=== PATIENT | male | born 1995 | race Caucasian/White ===

== ENCOUNTER 2020-08-02 23:53 | Emergency (ER) | payer OTHER ==
[2020-08-02 23:59] VITALS: BP 146/80; PULSE 98; RESP 18; TEMP 98
--- NOTE | 2020-08-03 00:35 | ED ---
Skin/Abscess/FB HPI - General Chief complaint: Skin/Abscess/Foreign Body Stated complaint: swallowed razor Time Seen by Provider: 08/02/20 23:59 Source: patient, police Mode of arrival: ambulatory Limitations: no limitations - History of Present Illness Initial comments: 25 year-old male patient presents to the emergency department for evaluation after swallowing a razor blade. Patient is currently incarcerated. States that he swallowed the blade around 2100 in an attempt to kill himself. Patient states he is having some burning in his abdomen and hiccups since swallowing it. Denies vomiting. Has not had a bowel movement. Denies any other injuries or concerns. Patient denies any recent rash, fever, chills, cough, shortness of breath, chest pain, back pain, numbness, tingling, dizziness, weakness, hematuria, dysuria, urinary urgency, urinary frequency, headache, visual changes, or any other complaints. - Related Data Allergies Allergy/AdvReac Type Severity Reaction Status Date / Time No Known Allergies Allergy Verified 08/02/20 23:58 Review of Systems ROS Statement: Those systems with pertinent positive or pertinent negative responses have been documented in the HPI. ROS Other: All systems not noted in ROS Statement are negative. Past Medical History Past Medical History: No Reported History History of Any Multi-Drug Resistant Organisms: None Reported Past Surgical History: Appendectomy Past Psychological History: Depression, PTSD Smoking Status: Never smoker Past Alcohol Use History: None Reported Past Drug Use History: None Reported General Exam Limitations: no limitations General appearance: alert, in no apparent distress, other (this is a well- developed, well-nourished adult male patient in no acute distress.) Eye exam: Present: normal appearance, PERRL, EOMI. Absent: scleral icterus, conjunctival injection, periorbital swelling ENT exam: Present: normal exam, normal oropharynx, mucous membranes moist Respiratory exam: Present: normal lung sounds bilaterally. Absent: respiratory distress, wheezes, rales, rhonchi, stridor Cardiovascular Exam: Present: regular rate, normal rhythm, normal heart sounds. Absent: systolic murmur, diastolic murmur, rubs, gallop, clicks GI/Abdominal exam: Present: soft, normal bowel sounds. Absent: distended, tenderness, guarding, rebound, rigid Neurological exam: Present: alert, oriented X3, CN II-XII intact Psychiatric exam: Present: normal affect, normal mood Skin exam: Present: warm, dry, intact, normal color. Absent: rash Course Vital Signs 08/02/20 23:56 Temperature 98 F Pulse Rate 98 Respiratory 18 Rate Blood Pressure 146/80 O2 Sat by Pulse 99 Oximetry Medical Decision Making - Medical Decision Making 25-year-old male patient presents to the emergency department today for evaluation after swallowing a razor blade in attempt to kill himself. Patient is currently incarcerated. Reports some mild epigastric burning, no vomiting. Tu x-rays were obtained and did show a razor blade type foreign body noted over the left upper quadrant region. Case was discussed with on-call manager contract Dr. Gutierrez who is not going to do intervention at this time. Most likely the foreign body will pass without incident. Patient is informed of signs and symptoms to watch out for. He does seem regretful of his actions and states it was "stupid". He is instructed to watch his stool, repeat xray in 3-4 days if the object is not identified in the stool. Sheriff rausch here with patient informs me that patient will undergo mental health evaluation and monitoring in senior living. Patient is agreeable to discharge. Return parameters were discussed in detail. He verbalizes understanding. Case discussed with my attending Dr. Madrigal. - Radiology Data Radiology results: image reviewed Metallic foreign body noted over the left upper quadrant. Disposition Clinical Impression: Swallowed foreign body Disposition: HOME SELF-CARE Condition: Good Instructions (If sedation given, give patient instructions): Foreign Body Ingestion (ED) Additional Instructions: Follow up with the primary care physician as soon as possible. If you have increased abdominal pain, vomiting blood, large amounts of bloody stool return to the hospital immediately. Is patient prescribed a controlled substance at d/c from ED?: No Referrals: None,Stated [Primary Care Provider] - 1-2 days Time of Disposition: 00:35
--- NOTE | 2020-08-03 01:08 | XR ---
ADDENDUM - Added by Axel Sanchez MD on 08/03/2020 1:11 AM (-05:00) Corrective addendum: There is an abnormal rectangular foreign body in the left upper quadrant measuring approximate 9 x 23 mm. This could be in the stomach and the small bowel or colon. EXAM: XR Abdomen, 2 Views CLINICAL HISTORY: Reason: swallowed razor blade TECHNIQUE: Frontal view of the abdomen/pelvis with upright view of the abdomen. COMPARISON: No relevant prior studies available. FINDINGS: Examination includes the abdomen and pelvis as well as the lower chest. No foreign body is identified. The bowel gas pattern is unremarkable. There is no evidence of free intraperitoneal air. IMPRESSION: Negative abdominal x-rays.
--- NOTE | 2020-08-03 01:09 | XR ---
EXAM: XR Soft Tissue Neck CLINICAL HISTORY: TECHNIQUE: Frontal and lateral views of the soft tissues of the neck. COMPARISON: No relevant prior studies available. FINDINGS: Examination includes the neck as well as the mid and upper aspect of the chest. No foreign body is identified. The airways and soft tissues have a normal appearance. IMPRESSION: Negative neck x-rays.
== END 2020-08-03 00:52 | disposition home or self-care (01) ==
LOC: EC 23:53
DX: T18.9XXA Foreign body of alimentary tract, part unspecified, initial encounter (principal); X83.8XXA Intentional self-harm by other specified means, initial encounter; Y92.149 Unspecified place in prison as the place of occurrence of the external cause
CPT/HCPCS: 70360; 74018; 99285